=== PATIENT | male | born 1960 | race Caucasian/White ===

== ENCOUNTER 2019-05-29 14:04 | Emergency (ER) | payer OTHER ==
--- NOTE | 2019-05-29 15:52 | ED ---
Upper Extremity Pain - HPI Summary HPI Summary: Pt. is a 59 y.o male who presents emergency department for right shoulder injury that occurred 5 days ago. Patient states he mechanical fall down the stairs and landed onto his right shoulder. No other injuries sustained. Patient notes his range of motion is minimal with abduction. Denies headache, neck pain, numbness, tingling or weakness. Symptoms are mild in severity. Movement makes symptoms worse. Rest makes symptoms better. - History of Current Complaint Chief Complaint: EDExtremityUpper Stated Complaint: PT NEEDS X-RAY Time Seen by Provider: 05/29/19 15:51 Hx Obtained From: Patient - Allergies/Home Medications Allergies/Adverse Reactions: Allergies Allergy/AdvReac Type Severity Reaction Status Date / Time No Known Allergies Allergy Verified 05/29/19 16:09 PMH/Surg Hx/FS Hx/Imm Hx Previously Healthy: Yes Infectious Disease History: No Infectious Disease History: Denies: Traveled Outside the [place] in Last 30 Days - Social History Occupation: Employed Full-time Lives: With Family Review of Systems Positive: Other - right shoulder pain Skin: Negative Neurological: Negative Negative: Headache, Weakness, Paresthesia, Numbness, Syncope All Other Systems Reviewed And Are Negative: Yes Physical Exam Triage Information Reviewed: Yes Vital Signs On Initial Exam: Initial Vitals Temp Pulse Resp BP Pulse Ox 97.5 F 73 14 151/83 100 05/29/19 14:07 05/29/19 14:07 05/29/19 14:07 05/29/19 14:07 05/29/19 14:07 Vital Signs Reviewed: Yes Appearance: Positive: Well-Appearing - Pt. sitting on bed in NAD> Skin: Positive: Warm, Dry Head/Face: Positive: Normal Head/Face Inspection Eyes: Positive: Normal, EOMI Neck: Positive: Supple Musculoskeletal: Positive: Other - Pain to proximal and superior right humerus. Good radial pulse. No breaks in the skin. Can touch contralateral shoulder with pain. Unable to abduct arm past shoulder. Neurological: Positive: Normal, CN Intact II-III Psychiatric: Positive: Affect/Mood Appropriate Procedures - Sedation Patient Received Moderate/Deep Sedation with Procedure: No Diagnostics - Vital Signs Vital Signs Temp Pulse Resp BP Pulse Ox 05/29/19 14:07 97.5 F 73 14 151/83 100 - Laboratory Lab Statement: Any lab studies that have been ordered have been reviewed, and results considered in the medical decision making process. Course/Dx - Course Course Of Treatment: Patient with isolated right shoulder injury. X-rays negative for acute findings, reading per radiology. Suspect rotator cuff injury. Advised ice and anti-inflammatories. Avoid heavy lifting. Sling intermittently for comfort. Patient: Orthopedics tomorrow for close follow-up appointment for further evaluation. - Diagnoses Differential Diagnosis/HQI/PQRI: Positive: Contusion, Fracture (Closed), Strain , Sprain Provider Diagnoses: Shoulder injury Discharge ED - Sign-Out/Discharge Documenting (check all that apply): Patient Departure - Discharge Plan Condition: Good Disposition: HOME Prescriptions: Naproxen [Naproxen 500 mg tab] 500 mg PO BID #20 tablet Patient Education Materials: Rotator Cuff Injury (ED), Shoulder Sprain (ED) Referrals: Radha Santiago MD [Medical Doctor] - Additional Instructions: Call orthopedics tomorrow for an appointment Naproxen as directed Ice intermittently Avoid heavy lifting Shoulder sling intermittently for comfort Return to ER if symptoms change or worsen - Billing Disposition and Condition Condition: GOOD Disposition: Home - Attestation Statements Provider Attestation: pt seen by midlevel provider independently, based on their assessment, it was not necessary to present the case to me but I was available for consultation. I did not form a physician-patient relationship with the patient. The chart however, has been reviewed. am signing this note strictly in an administrative capacity.
[2019-05-29 17:25] VITALS: BP 148/80
== END 2019-05-29 17:23 | disposition home or self-care (01) ==
LOC: ED 14:04
DX: S49.91XA Unspecified injury of right shoulder and upper arm, initial encounter (principal); W10.9XXA Fall (on) (from) unspecified stairs and steps, initial encounter; Y92.9 Unspecified place or not applicable
CPT/HCPCS: 99282